=== PATIENT | male | born 1965 | race Hispanic/Latino ===

== ENCOUNTER 2023-10-14 10:16 | Emergency (ER) | payer BC ==
[~2023-10-14] VITALS: Ht 170.2 cm; Wt 74.8 kg
[2023-10-14 10:29] VITALS: BP 137/89; PULSE 77; RESP 16; O2SAT 98
[2023-10-14] MEDS ORDERED: BACITRACIN 1 EACH PACKET TP ONE ×2 (11:16→11:30)
[2023-10-14] MEDS ORDERED: AMOX1TAB16 PO (11:20)
[2023-10-14] MEDS ORDERED: TETANUS/DIPHTHERIA TOXOID [ADULT] 0.5 ML VIAL IM ONE (11:30)
== END 2023-10-14 11:56 | disposition home or self-care (01) ==
LOC: EDH 10:16
DX: S81.852A Open bite, left lower leg, initial encounter (principal); W54.0XXA Bitten by dog, initial encounter; Y93.89 Activity, other specified; Y92.89 Other specified places as the place of occurrence of the external cause; Y99.8 Other external cause status
CPT/HCPCS: 90471; 90714